=== PATIENT | male | born 1990 | race Caucasian/White ===

== ENCOUNTER 2020-07-10 10:57 | Outpatient (CLI) | payer MEDICARE, SELFPAY ==
[2020-07-10 13:10] LABS: Semen Viscosity Not Increased (Not Increa.); Volume Semen 2 mL (1.5-5.0)
[2020-07-10 13:11] LABS: Liquefaction Semen Complete in 30 min. (<30 minutes)
[2020-07-10 13:12] LABS: Semen Color Opaque (Grey-opaque); Semen Immotility 40 %; Semen Morphology Result to Follow; Semen Non-Progressive Motility 10 %; Semen Progressive Motility 50 % (>32); Semen Total Motility 60 (>40% (PM+NP)); Sperm Count 8.2 Mil/mL (60-150 million/mL)
[2020-07-18 14:55] LABS: Fructose, Semen 242 mg/dL (150-600)
== END 2020-07-10 10:58 | disposition home or self-care (01) ==
LOC: CHSLAB 11:02
PROVIDERS: PCP Family Medicine; Visit Provider Obstetrics & Gynecology
DX: N46.9 Male infertility, unspecified (principal)
CPT/HCPCS: 82757; 88160; 89320